=== PATIENT | female | born 1950 | race Caucasian/White ===

== ENCOUNTER → 2020-04-09 | Day surgery (SDC) | payer MEDICARE, OTHER ==
[~2020-04-09] MED LIST: ASPIRIN CHEWABL81 MG PO; ATORVASTATIN CA40 MG PO; CLOPIDOGREL75 MG PO; FLUOXETINE HCL10 MG PO; GLIMEPIRIDE4 MG PO; HCTZ25 MG PO; IBUPROFEN800 M1 PO; LOPRESSOR25 MG PO; METFORMIN HCL500 M3 PO; NITROQUIK SL0.4 MG SL; VITAMIN D3125 MC2 PO
== END | disposition home or self-care (01) ==
LOC: FAS 06:40
DX: N88.2 Stricture and stenosis of cervix uteri (principal); N84.0 Polyp of corpus uteri; I35.0 Nonrheumatic aortic (valve) stenosis; J30.9 Allergic rhinitis, unspecified; M19.90 Unspecified osteoarthritis, unspecified site; N83.201 Unspecified ovarian cyst, right side; N63.20 Unspecified lump in the left breast, unspecified quadrant; M85.80 Other specified disorders of bone density and structure, unspecified site; E11.9 Type 2 diabetes mellitus without complications; E78.00 Pure hypercholesterolemia, unspecified; E78.5 Hyperlipidemia, unspecified; K57.30 Diverticulosis of large intestine without perforation or abscess without bleeding; I10 Essential (primary) hypertension; Z88.8 Allergy status to other drugs, medicaments and biological substances; Z88.5 Allergy status to narcotic agent; Z98.890 Other specified postprocedural states; Z20.822 Contact with and (suspected) exposure to COVID-19; Z90.49 Acquired absence of other specified parts of digestive tract; Z98.51 Tubal ligation status; Z95.2 Presence of prosthetic heart valve
CPT/HCPCS: 88305; J2250; J2405; J2704; J3010; J7120